=== PATIENT | male | born 1965 | race Caucasian/White ===

== ENCOUNTER 2019-12-13 22:36 | Emergency (ER) | payer OTHER, SELFPAY ==
[~2019-12-13] VITALS: Ht 167.6 cm; Wt 80.0 kg
[2019-12-13 22:37] VITALS: BP 164/96
--- NOTE | 2019-12-13 23:14 | NUR ---
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
[2019-12-13] MEDS ORDERED: NEOSPORIN OINT. PKT 1 PACKET ONE (23:46)
== END 2019-12-14 00:08 | disposition home or self-care (01) ==
LOC: ED 12-14 00:05
DX: L03.115 Cellulitis of right lower limb (principal); F17.210 Nicotine dependence, cigarettes, uncomplicated
CPT/HCPCS: 82962; 99283